=== PATIENT | female | born 1950 | race Caucasian/White ===

== ENCOUNTER 2017-02-24 09:20 | Day surgery (SDC) | payer BC ==
[~2017-02-24 09:20] MED LIST: Acetaminophen TAB* 325 MG PO PRN; Buffered Lidocaine 0.9% SYRIN* 5 ML/SYR SYRINGE INTRADERM ONE
[2017-02-24] MEDS ORDERED: Midazolam* 1 MG/ML 2 ML VIAL (2 MG) ONE ×2 (10:31→11:02)
[2017-02-24] MEDS ORDERED: fentaNYL* 50 MCG/ML 2 ML VIAL (100 MCG VIAL) ONE (10:31)
[2017-02-24 11:41] VITALS: BP 122/55
[2017-02-24] MEDS ORDERED: Tetracaine 0.5% OPTH.SOL 4 ML* 1 DROP BTL ONE (13:17)
[2017-02-24] MEDS ORDERED: Ketorolac 0.5% OPHTH (NF) 0.5 % 5 ML BTL ONE (13:17)
[2017-02-24] MEDS ORDERED: Cyclopentolate 1% OPTH.SOL* 2 ML BTL ONE (13:17)
[2017-02-24] MEDS ORDERED: Lidocaine 1% MPF* 2 ML VIAL ONE (13:17)
[2017-02-24] MEDS ORDERED: Buffered Lidocaine 0.9% SYRIN* 5 ML/SYR SYRINGE ONE (13:17)
[2017-02-24] MEDS ORDERED: Phenylephrine 2.5% OPTH.SOL* 2 ML BTL ONE (13:17)
[2017-02-24] MEDS ORDERED: Tropicamide 1% OPTH.SOL* BTL ONE (13:17)
[2017-02-24] MEDS ORDERED: Neomycin/Polymy/Dex OPHTH.OIN* 3.5 GM ONE (13:17)
--- NOTE | 2017-02-25 02:35 | OP ---
DATE OF OPERATION: 02/24/17 [facility] DATE OF : 54 SURGEON: Dr. Jabier Dean. VIDEO GAMES STORYWRITER: None. ANESTHESIOLOGIST: Luis Bray MD ANESTHESIA: Topical with intravenous sedation. PRE-OP DIAGNOSIS: Cataract, left eye. POST-OP DIAGNOSIS: Cataract, left eye. OPERATIVE PROCEDURE: Phacoemulsification and cataract extraction with posterior chamber intraocular lens implant, left eye. COMPLICATIONS: None. BLOOD LOSS: None. DESCRIPTION OF PROCEDURE: The patient was brought to the operating room and received a small amount of intravenous sedation. A drop of Tetracaine was placed in her left eye. She was prepped and draped in the usual sterile fashion for ophthalmic surgery and attention was directed to the left eye where a speculum was placed. A paracentesis was created at the 5 o'clock position and 0.1 cc of 1 percent preservative-free Lidocaine was injected into the anterior chamber followed by DisCoVisc. The eye was digitally stabilized while a 2.75 mm keratome was used to create a triplanar clear corneal incision at the 3 o'clock position. A continuous curvilinear capsulorrhexis was created with a cystotome and Utrata forceps. BSS on a cannula was used to hydrodissect the lens from the capsule. Phacoemulsification was performed in a divide-and- conquer technique to create four fragments which were removed. Residual cortical material was removed with irrigation and aspiration. DisCoVisc was used to inflate the capsular bag and an AU00T0 22.5 diopter lens was folded and inserted into the capsular bag. DisCoVisc was removed using irrigation and aspiration. BSS on a cannula was used to hydrate the corneal stroma and seal the wound. At the end of the case the pupil was round and the lens was centered. The eye was of normal pressure and the wound was water tight. The speculum was removed and topical Maxitrol ointment was placed on the surface of the eye. The eye was closed, patched and shielded and the patient was sent to the recovery room in stable condition with post operative instructions and follow-up appointment given. [id number]/CPS #: [id number] MTDD
--- NOTE | 2017-02-25 05:31 | OP ---
DATE OF OPERATION: 02/24/17 [facility] DATE OF : 54 SURGEON: Dr. Jabier Dean. SHIP PROPELLER FINISHER: None. ANESTHESIOLOGIST: Luis Bray MD ANESTHESIA: Topical with intravenous sedation. PRE-OP DIAGNOSIS: Cataract, left eye. POST-OP DIAGNOSIS: Cataract, left eye. OPERATIVE PROCEDURE: Phacoemulsification and cataract extraction with posterior chamber intraocular lens implant, left eye. COMPLICATIONS: None. BLOOD LOSS: None. DESCRIPTION OF PROCEDURE: The patient was brought to the operating room and received a small amount of intravenous sedation. A drop of Tetracaine was placed in her left eye. She was prepped and draped in the usual sterile fashion for ophthalmic surgery and attention was directed to the left eye where a speculum was placed. A paracentesis was created at the 5 o'clock position and 0.1 cc of 1 percent preservative-free Lidocaine was injected into the anterior chamber followed by DisCoVisc. The eye was digitally stabilized while a 2.75 mm keratome was used to create a triplanar clear corneal incision at the 3 o'clock position. A continuous curvilinear capsulorrhexis was created with a cystotome and Utrata forceps. BSS on a cannula was used to hydrodissect the lens from the capsule. Phacoemulsification was performed in a divide-and- conquer technique to create four fragments which were removed. Residual cortical material was removed with irrigation and aspiration. DisCoVisc was used to inflate the capsular bag and an AU00T0 22.0 diopter lens was folded and inserted into the capsular bag. DisCoVisc was removed using irrigation and aspiration. BSS on a cannula was used to hydrate the corneal stroma and seal the wound. At the end of the case the pupil was round and the lens was centered. The eye was of normal pressure and the wound was water tight. The speculum was removed and topical Maxitrol ointment was placed on the surface of the eye. The eye was closed, patched and shielded and the patient was sent to the recovery room in stable condition with post operative instructions and follow-up appointment given. [id number]/CPS #: [id number] MTDD
== END 2017-02-24 11:38 | disposition home or self-care (01) ==
LOC: OREAST 09:20
PROVIDERS: ATTEND Ophthalmology
DX: H25.042 Posterior subcapsular polar age-related cataract, left eye (principal); I10 Essential (primary) hypertension; K21.9 Gastro-esophageal reflux disease without esophagitis; H92.09 Otalgia, unspecified ear; E07.9 Disorder of thyroid, unspecified; Z88.2 Allergy status to sulfonamides; Z88.6 Allergy status to analgesic agent; Z88.1 Allergy status to other antibiotic agents
CPT/HCPCS: A9270-GY; J2250; J3010; V2632

== ENCOUNTER 2017-03-03 09:44 | Day surgery (SDC) | payer BC ==
[2017-03-03] MEDS ORDERED: fentaNYL* 50 MCG/ML 2 ML VIAL (100 MCG VIAL) ONE (10:04)
[2017-03-03] MEDS ORDERED: Midazolam* 1 MG/ML 5 ML VIAL (5 MG) ONE (10:04)
[2017-03-03] MEDS ORDERED: Cyclopentolate 1% OPTH.SOL* 2 ML BTL ONE (11:16)
[2017-03-03] MEDS ORDERED: Tetracaine 0.5% OPTH.SOL 4 ML* 1 DROP BTL ONE (11:16)
[2017-03-03] MEDS ORDERED: Phenylephrine 2.5% OPTH.SOL* 2 ML BTL ONE (11:16)
[2017-03-03] MEDS ORDERED: Neomycin/Polymy/Dex OPHTH.OIN* 3.5 GM ONE (11:16)
[2017-03-03] MEDS ORDERED: Buffered Lidocaine 0.9% SYRIN* 5 ML/SYR SYRINGE ONE (11:16)
[2017-03-03] MEDS ORDERED: Flurbiprofen 0.03% OPTH.SOL* 2.5 ML BTL ONE (11:16)
[2017-03-03] MEDS ORDERED: Tropicamide 1% OPTH.SOL* BTL ONE (11:16)
[2017-03-03] MEDS ORDERED: Lidocaine 1% MPF* 2 ML VIAL ONE (11:16)
[2017-03-03 11:49] VITALS: BP 138/59
--- NOTE | 2017-03-04 01:03 | OP ---
OPERATIVE REPORT: DATE OF OPERATION: 03/03/17 DATE OF : 54 SURGEON: Jabier Dean MD QC CHEMIST: None. ANESTHESIA: Topical with intravenous sedation. PRE-OP DIAGNOSIS: Cataract with astigmatism, right eye. POST-OP DIAGNOSIS: Cataract with astigmatism, right eye. OPERATIVE PROCEDURE: Phacoemulsification and cataract extraction with posterior chamber intraocular toric lens implant, right eye. COMPLICATIONS: None. BLOOD LOSS: None. OPERATIVE FINDINGS: The patient was seen preoperatively in the holding area where she was placed in the upright position. A sera was made at the 6 o'clock position of the conjunctiva near the limbus of the right eye. The patient was subsequently brought to the operating room where she was given a small amount of intravenous sedation and a drop of tetracaine in the right eye. The patient was pr epped and draped in the usual sterile fashion for ophthalmic surgery and attention was directed to t he right eye where a speculum was placed. A paracentesis was created at the 11 o'clock position. A 0.1 cc of 1% preservative-free Lidocaine was injected into the anterior chamber followed by DisCoVi sc. The eye was digitally stabilized while a 2.75 mm keratome was used to create a triplanar clear corneal incision at the 3 o'clock position. A continuous curvilinear capsulorrhexis was created wit h a cystotome and Utrata forceps. BSS on a cannula was used to hydrodissect the lens from the capsu le. Phacoemulsification was performed in a furhue-bjj-duvboat technique to create four fragments wh ich were removed. Residual cortical material was removed with irrigation and aspiration. Healon wa s used to inflate the capsular bag. A Nunez marker was used to sera the 98 degree access at the [facility]. An [id number] 23 diopter lens was folded and inserted into the capsular bag. It was dialed to th e appropriate axial alignment with a Sinskey hook. The Sinskey hook remained in the eye with the pa racentesis while irrigation and aspiration were performed to remove viscoelastic from the eye. The Sinskey hook was removed. BSS on a cannula was used to hydrate the corneal stroma and seal the woun d. At the end of the case, the pupil was round. The lens was centered, stable and axially aligned. The eye appeared normal pressure and was watertight. The speculum was removed and topical Maxitro l ointment was placed on the surface of the eye. The eye was closed, patched, and shielded and the patient was sent to the recovery room in stable condition with post operative instructions and follo wup appointment given. [id number]/[facility] #: [id number]
== END 2017-03-03 11:50 | disposition home or self-care (01) ==
LOC: OREAST 09:44
PROVIDERS: ATTEND Ophthalmology
DX: H25.11 Age-related nuclear cataract, right eye (principal); H52.201 Unspecified astigmatism, right eye; I10 Essential (primary) hypertension; I47.1 Supraventricular tachycardia
CPT/HCPCS: A9270-GY; J2250; J3010; V2787